=== PATIENT | female | born 1965 | race Two or more races ===

== ENCOUNTER → 2024-06-19 | Outpatient (CLI) | payer OTHER, SELFPAY ==
--- NOTE | 2024-06-19 09:15 | XR_ITS ---
Examination: Breast ultrasound, unilateral, left complete Date and time of exam: June 19, 2024 at 0949 hours INDICATIONS: Left breast sonogram September 08, 2023 1:00 nodule 5 mm 3:00 nodule 5 mm Technique: Real-time rivas scale ultrasonographic imaging performed left breast including all 4 quadrants as well as nipple retroareolar and axillary region. Findings: 2:00 oval mass circumscribed 7 mm 2:00 nodule circumscribed 6 mm IMPRESSION: BI-RADS Category 2: Benign findings
--- NOTE | 2024-06-19 09:45 | XR_ITS ---
Examination: Diagnostic digital mammography, unilateral, left Computer aided detection 3-D breast Tomosynthesis, unilateral Date and time of exam: July 17, 2024 0956 hours INDICATIONS: Mammogram September 08, 2023 8 mm circumscribed oval mass upper outer left breast Technique: Nonmagnified MLO, CC views of the left breast have been obtained, reconstructed from 3-D Tomosynthesis images. R2 computer aided detection program utilized for evaluation of suspicious masses and/or abnormal calcifications. 3-D Tomosynthesis images obtained. Findings: Scattered areas of fibroglandular density 7 mm nodule circumscribed upper outer left breast Impression: BI-RADS category 3: Probably benign findings One additional 6 month left mammogram follow-up is needed to document stability of nodule described above
== END | disposition home or self-care (01) ==
LOC: CDIM 09:00
PROVIDERS: Referring Provider Nurse Practitioner Women's Health; Visit Provider Nurse Practitioner Women's Health
DX: R92.332 Mammographic heterogeneous density, left breast (principal); N63.21 Unspecified lump in the left breast, upper outer quadrant
CPT/HCPCS: 76641; 77061; 77065; G0279